=== PATIENT | female | born 1985 | race Two or more races ===

== ENCOUNTER 2021-06-25 13:30 | Emergency (ER) | payer OTHER ==
[~2021-06-25] VITALS: Ht 165.1 cm; Wt 90.7 kg
[2021-06-25 13:31] VITALS: BP 125/82
[2021-06-25] MEDS ORDERED: diphenhdrAMINE HCL 50 MG/1 ML VL IM ONE (14:15)
[2021-06-25] MEDS ORDERED: EPINEPHrine HCL 1 MG/1 ML AMP SC ONE (14:15)
[2021-06-25] MEDS ORDERED: TRIA0.1O EX (14:32)
[2021-06-25] MEDS ORDERED: HYDR50CA PO (14:32)
== END 2021-06-25 14:53 | disposition home or self-care (01) ==
LOC: ER 13:30
DX: T78.40XA Allergy, unspecified, initial encounter (principal); X58.XXXA Exposure to other specified factors, initial encounter
CPT/HCPCS: 96372; 99284; J0171; J1200